=== PATIENT | female | born 1990 | race Caucasian/White ===

== ENCOUNTER 2019-10-25 08:35 | Outpatient (CLI) | payer OTHER, SELFPAY ==
[2019-10-25 09:16] LABS: Hematocrit 37.8 % (37.0-47.0); Hemoglobin 12.7 g/dL (12.0-15.0); Mean Corpuscular HGB Conc 33.6 g/dl (32-36); Mean Corpuscular Hemoglobin 28.8 pg (26-34); Mean Corpuscular Volume 85.7 fl (80-100); Mean Platelet Volume 9.7 fl (7.4-10.4); Platelet Count Result 244 k/mm3 (150-375); Red Blood Count 4.41 M/mm3 (4.2-5.4); Red Cell Distribution Width 11.9 % (11.5-14.5); White Blood Count 7.1 K/mm3 (4.5-10.0)
[2019-10-25 09:27] LABS: Alanine Aminotransferase 9 U/L (4-35); Albumin Level 4.9 g/dL (3.5-5.1); Alkaline Phosphatase 61 U/L (38-126); Aspartate Amino Transferase 19 U/L (14-36); Bilirubin,Total 0.5 mg/dL (0.2-1.3); Blood Urea Nitrogen 13 mg/dL (7-17); Calcium 9.5 mg/dL (8.4-10.2); Carbon Dioxide 27 mmol/L (22-30); Chloride 102 mmol/L (98-107); Cholesterol 182 mg/dL (0-200); Estimated Glomerular Filt Rate > 60; Glucose 96 mg/dL (65-105); HDL Direct 33 mg/dL; Potassium 4.1 mmol/L (3.4-5.0); Sodium 138 mmol/L (137-145); Triglycerides 190 mg/dL (<150)
[2019-10-25 09:38] LABS: LDL Cholesterol Direct 101 mg/dL
[2019-10-25 10:09] LABS: Free T4 Free Thyroxine 1.09 ng/mL (0.78-2.19)
== END 2019-10-25 08:36 | disposition home or self-care (01) ==
PROVIDERS: PCP Family Medicine; Visit Provider Physician Assistant
DX: R53.83 Other fatigue (principal); Z13.220 Encounter for screening for lipoid disorders
CPT/HCPCS: 36415; 80053; 80061; 84439; 84443; 85027

== ENCOUNTER → 2020-04-14 10:13 | Outpatient (CLI) | payer OTHER, SELFPAY ==
--- NOTE | ~2020-04-14 | XR_ITS ---
XR lumbar spine 2-3V DATE: 04/14/2020 10:35 INDICATION: Low back pain TECHNIQUE: AP, lateral, coned lateral lumbosacral views COMPARISON: None FINDINGS: The lumbar vertebrae are normally aligned. No fracture or bone destruction or spondylolisth esis. Lumbar and lumbosacral interspaces are well preserved. The included lower thoracic and lumbar p edicles are intact. Normal sacroiliac joints. IMPRESSION: Negative Reviewed, dictated and finalized at location A. [employer] IMPRESSION: Negative
== END ==
PROVIDERS: PCP Family Medicine; Visit Provider Family Medicine
DX: M54.5 Low back pain (principal)
CPT/HCPCS: 72100

== ENCOUNTER → 2021-08-09 13:51 | Outpatient (CLI) | payer OTHER, SELFPAY ==
--- NOTE | ~2021-08-09 | US_ITS ---
US breast BI complete INDICATION: Bilateral breast pain TECHNIQUE: Dedicated complete bilateral breast ultrasound including all 4 quadrants in the subareolar location COMPARISON: No prior studies for comparison. FINDINGS: The breasts are composed of normal heterogeneous echotexture without focal solid mass. Ther e are bilateral cysts in the periareolar location of the right breast measuring 5 mm and 12:00 positi on of the left breast, 1 cm from the nipple measuring 6 mm. IMPRESSION: 1: No sonographic evidence for malignancy in either breast. Benign findings. BI-RADS CATEGORY 2 - BENIGN FINDINGS Reviewed, dictated and finalized at location A.
== END ==
PROVIDERS: Visit Provider Nurse Practitioner
DX: N64.4 Mastodynia (principal)
CPT/HCPCS: 76641

== ENCOUNTER → 2022-11-30 09:23 | Outpatient (CLI) | payer OTHER, SELFPAY ==
--- NOTE | ~2022-11-30 | CT_ITS ---
Non-contrast CT scan of the Abdomen and Pelvis Clinical indication: Abdominal pain Technique: 2.5 mm axial scans were obtained through the abdomen and pelvis without intravenous or or al contrast. Dose reduction technique was used on this scan by utilizing automated exposure control a nd iterative reconstruction technique. The dose-length product (DLP) was 206.50 mGy-cm. Findings: Images through the lung bases reveal 4 mm right middle lobe pulmonary nodule. There is no evidence of renal or ureteral calculi. The kidneys and the ureters are nondilated. The liver, spleen, pancreas, gallbladder, and adrenals appear normal. There is no aortic aneurysm. There is no evidence of bowel obstruction. Images through the pelvis were performed. There is no evidence of ascites or lymphadenopathy. Urinary bladder unremarkable. 3 cm right ovarian cyst present. Impression: 3 cm right ovarian cyst. 4 mm right middle lobe pulmonary nodule. According to Fleischner Society criteria, for a low-risk pat ient, no further follow-up required. For a high-risk patient, consider 12 month follow-up CT. Reviewed, dictated and finalized at [facility]. Impression: 3 cm right ovarian cyst. 4 mm right middle lobe pulmonary nodule. According to Fleischner Society criter ia, for a low-risk patient, no further follow-up required. For a high-risk staci ent, consider 12 month follow-up CT.
== END ==
PROVIDERS: PCP Physician Assistant Medical; Visit Provider Physician Assistant Medical
DX: N83.201 Unspecified ovarian cyst, right side (principal); R91.1 Solitary pulmonary nodule
CPT/HCPCS: 74176